=== PATIENT | male | born 1990 | race African-American/Black ===

== ENCOUNTER → 2019-04-02 | Outpatient (CLI) | payer BC ==
--- NOTE | 2019-04-04 12:56 | RADIOLOGY REPORT (SQ) ---
EXAM DESCRIPTION: MRI LT LOWER JOINT WITHOUT COMPLETED DATE/TIME: 04/02/2019 7:45 pm REASON FOR STUDY: S86.012A STRAIN OF LEFT ACHILLES TENDON, INITIAL ENCOUNTER S86.012A STRAIN OF LEF T ACHILLES TENDON, INITIAL ENCOUNTER COMPARISON: None. TECHNIQUE: Left ankle images acquired and stored on PACS. Multiplanar images include fat sensitive s equences as T1, fluid sensitive sequences as FST2/STIR, cartilage sensitive sequences as FSPD, and gr adient echo sequences. LIMITATIONS: None. FINDINGS: BONE MARROW: No alteration of signal to suggest marrow replacement or edema. No occult fra cture. No large osteophytes. EFFUSIONS: No subtalar or tibiotalar effusions. No loose bodies. OSSEOUS ARTICULATIONS: Intact. TALAR DOME AND TIBIAL PLAFOND: Intact. ACHILLES TENDON: Complete rupture approximately 6 cm proximal to the insertion. No significant bursa l fluid. TIBIALIS ANTERIOR TENDON: Intact. TIBIALIS POSTERIOR TENDON: Intact. FLEXOR HALLUCIS LONGUS AND FLEXOR DIGITORUM TENDONS: Intact. PERONEUS LONGUS AND BREVIS TENDON: Intact. ATFL, CFL, PTFL: Intact. DELTOID LIGAMENT: Visualized components intact. TARSAL TUNNEL: No masses. No muscle atrophy. SINUS TARSI: No fluid. No reactive marrow edema or erosions. PLANTAR FASCIA: No signal alteration or tear. ADJACENT SOFT TISSUES: No masses. OTHER: No other significant finding. IMPRESSION: Ruptured Achilles tendon about 6 cm proximal to the insertion. TECHNICAL DOCUMENTATION: JOB ID: [id number] [employer]- All Rights Reserved Reading location - IP/workstation name: [email or web address]
== END ==
LOC: RAD 18:35
PROVIDERS: ATTEND Physician Assistant
DX: S86.012A Strain of left Achilles tendon, initial encounter (principal); X58.XXXA Exposure to other specified factors, initial encounter